=== PATIENT | male | born 1945 | race Caucasian/White ===

== ENCOUNTER 2023-12-14 11:47 | Outpatient (REF) | payer MEDICARE, SELFPAY ==
[2023-12-14 13:04] LABS: Erythrocyte Sedimentation Rate 26 MM/HR (0-15)
[2023-12-14 13:30] LABS: Folate 10.6 ng/mL (> or = 4.0); Vitamin B12 504 pg/mL (200-900)
[2023-12-16 07:13] LABS: Lyme Blot 1.31 index
[2023-12-16 11:46] LABS: Lyme Abs Screen POSITIVE
[2023-12-17 15:04] LABS: 18 KD (IgG) Band REACTIVE; 23 KD (IgG) Band NON-REACTIVE; 23 KD (IgM) Band NON-REACTIVE; 28 KD (IgG) Band NON-REACTIVE; 30 KD (IgG) Band NON-REACTIVE; 39 KD (IgM) Band NON-REACTIVE; 39KD (IgG) Band NON-REACTIVE; 41 KD (IgM) Band NON-REACTIVE; 41KD (IgG) Band REACTIVE; 45 KD (IgG) Band NON-REACTIVE; 58 KD (IgG) Band REACTIVE; 66 KD (IgG) Band NON-REACTIVE; 93 KD (IgG) Band REACTIVE; Lyme IgG Blot Interp NEGATIVE (NEGATIVE); Lyme IgM Blot Interp NEGATIVE (NEGATIVE)
[2023-12-17 16:23] LABS: IgA 152 mg/dL (70-320); IgG 1126 mg/dL (600-1540); IgM 89 mg/dL (50-300)
== END 2023-12-14 11:48 | disposition home or self-care (01) ==
LOC: HO.LAB 11:47
PROVIDERS: PCP Internal Medicine; Visit Provider Psychiatry & Neurology Neurology
DX: G62.9 Polyneuropathy, unspecified (principal)
CPT/HCPCS: 36415; 82607; 82746; 82784; 85652; 86334; 86617; 86618